=== PATIENT | female | born 1945 | race Caucasian/White ===

== ENCOUNTER 2020-01-15 18:30 | Inpatient (IN) | payer OTHER ==
[~2020-01-15] VITALS: Ht 170.2 cm; Wt 82.6 kg
[~2020-01-15 18:30] MED LIST: LISI2.5T47 PO; OMEP20CA74 PO
[2020-01-15] MEDS ORDERED: MORPHINE SULFATE 4 MG/ML SYR/VIAL IV ONE (18:45)
[2020-01-15] MEDS ORDERED: ONDANSETRON HCL 4 MG/2 ML VIAL IV ONE (18:45)
[2020-01-15 20:26] LABS: Calcium 8.2 mg/dL (8.5-10.1); Chloride 106 mmol/L (98-107); Sodium 136 mmol/L (136-145)
[2020-01-15 20:33] LABS: Alanine Aminotransferase 21 U/L (13-56); Albumin 3.2 g/dL (3.4-5.0); Alkaline Phosphatase 112 U/L (45-117); Anion Gap 6 (5-15); Aspartate Aminotransferase 15 U/L (15-37); Bilirubin, Total 0.3 mg/dL (0.2-1.0); Blood Urea Nitrogen 17 mg/dL (7-18); Carbon Dioxide 24 mmol/L (21-32); GFR African American 118 mL/min; GFR Non-African American 98 mL/min; Glucose 123 mg/dL (74-106); Total Protein 7.1 g/dL (6.4-8.2)
[2020-01-15 21:04] LABS: Urine Bacteria FEW /hpf (None Seen); Urine Blood 1+ /uL (Negative); Urine Specific Gravity 1.012 (1.001-1.035); Urine WBC 2 /hpf (0 - 5)
[2020-01-15 21:17] LABS: Basophils # (auto) 0.1 10 ^3/uL (0-0.2); Basophils % (auto) 0.6 % (0.0-2.0); Eosinophils # (auto) 0.1 10 ^3/uL (0-0.8); Hematocrit 43.8 % (36.0-46.0); Hemoglobin 14.2 g/dL (12.2-16.2); Lymphocytes # (auto) 1.1 10 ^3/uL (0.4-5.4); Lymphocytes % (auto) 13.7 % (10.0-50.0); Mean Corpuscular Hemoglobin 29.1 pg (28.0-32.0); Mean Corpuscular Hgb Conc. 32.5 g/dL (32.0-36.0); Mean Corpuscular Volume 89.5 fL (80.0-100.0); Monocytes # (auto) 0.5 10 ^3/uL (0-1.3); Monocytes % (auto) 6.6 % (0.0-12.0); Neutrophils # (auto) 6.4 10 ^3/uL (1.6-8.6); Neutrophils % (auto) 78.1 % (37.0-80.0); Nucleated Red Blood Cells % 0.1 %; Platelet Count (auto) 266 10^3/uL (140-450); Red Blood Cells 4.89 10^6/uL (4.0-5.20); Red Cell Distribution Width 14.2 % (11.8-14.3); White Blood Cell 8.2 10^3/uL (4.4-10.8)
[2020-01-15] MEDS ORDERED: SODIUM CHLORIDE 0.9% 1,000 ML IV SCH (23:38)
[2020-01-15] MEDS ORDERED: IPRATROPIUM BROM 0.5 MG/2.5ML INH SOL NEB PRN (23:45)
[2020-01-15] MEDS ORDERED: LORazepam 0.5 MG TAB PO PRN (23:45)
[2020-01-15] MEDS ORDERED: DOCUSATE SOD 100 MG CAP PO PRN (23:45)
[2020-01-15] MEDS ORDERED: HYDROcodone-ACET 5/325MG TAB PO PRN (23:45)
[2020-01-15] MEDS ORDERED: ALBUTEROL SULF 2.5 MG/0.5ML(0.5%) NEB SOLN NEB PRN (23:45)
[2020-01-15] MEDS ORDERED: ONDANSETRON HCL 4 MG/2 ML VIAL IV PRN (23:45)
[2020-01-15] MEDS ORDERED: ACETAMINOPHEN 325 MG TAB PO PRN (23:45)
[2020-01-15 23:52] VITALS: BP 138/123
[2020-01-16] VITALS (7 sets, daily range): BP systolic 145–163; BP diastolic 63–96
[2020-01-16] MEDS: cefTRIAXone 1GM/50ML D5W 50 ML IV SCH (00:13)
--- NOTE | 2020-01-16 00:30 | NUR ---
ADMISSION NOTE Pt admitted to room 248-A , m/s status, in stable cond. Pt oriented to room and procedures and POC discussed with pt. Pt verbalized understanding. Pt transferred to bed from stretcher and "lifting tarp" removed from under pt at this time. Pt cried out in pain during transfer. Will medicate pt according to orders. Pt with a soft tissue injury to her head per CT head results, and some old dry blood noted in pt's hair. Admission assessment completed now. Bed is low, wheels are locked, and call light is with in reach. Bed alarm is set for pt safety. Addendum: 01/16/20 at 0725 by CYNDIE FRANCIS RN Old dry blood found in the hair of right occipital area but no open wound found.
[2020-01-16] MEDS: MORPHINE SULF INJ 2 MG/ML SYRINGE 1ML IV PRN ×2 (01:10→09:35)
--- NOTE | 2020-01-16 05:58 | NUR ---
Respiratory note: ASSESSED PT FOR PRN TX , PT WAS AWAKE AND ALERT NO RESP DISTRESS NOTED. HR 58, RR 16, SPO2 100% ON 3L N/C. BS ARE CLEAR, NO INDICATION FOR TX AT THIS TIME. PT KNOWS TO HAVE RT PAGED IF TX IS NEEDED.
--- NOTE | 2020-01-16 07:30 | NUR ---
Opening Shift Note Assumed care of patient, awake and alert. No S/S of distress/SOB or pain. Instructed on POC and to call for assist PRN, will continue to monitor for changes Q1hr and PRN.
--- NOTE | 2020-01-16 08:00 | NUR ---
PT STARTED ON BILATERAL SCD'S.
[2020-01-16] MEDS ORDERED: methylPREDNISolone SOD SUCC 125 MG/2 ML VL IV SCH (10:00)
[2020-01-16] MEDS ORDERED: CELECOXIB 100 MG CAP PO ONE (13:30)
--- NOTE | 2020-01-16 15:00 | NUR ---
SPOKE TO PT'S DAUGHTER, SCOUT. STATUS UPDATE GIVEN. WILL CALL BACK TOMORROW.
[2020-01-16] MEDS: methylPREDNISolone SOD SUCC 40 MG/ML VL IV SCH ×2 (17:22→22:19)
--- NOTE | 2020-01-16 18:21 | NUR ---
RT NOTE: PT ASSESSED FOR PRN MED NEB TX, PT ON ROOM AIR SPO2 97% HR 72, RR 16. BS CLEAR. PT DENIES SOB. NO DISTRESS NOTED. PT NOTIFIED TO HAVE RT PAGED IF SOB OCCURS. CALL LIGHT WITHIN REACH.
--- NOTE | 2020-01-16 18:46 | NUR ---
CLOSING NOTES Patient awake and alert. RESTING IN BED. DENIES PAIN WHEN IMMOBILE. PT GOT UP WITH THE PHYSICAL THERAPIST AND WAS ABLE TO AMBULATE TO THE BATHROOM AND BACK. VERBALIZED FEELING GOOD UPON DOING IT.
[2020-01-16] MEDS: CELECOXIB 100 MG CAP PO SCH (22:19)
[2020-01-17 05:10] VITALS: BP 164/74
[2020-01-17] MEDS: methylPREDNISolone SOD SUCC 40 MG/ML VL IV SCH ×2 (05:16→09:54)
[2020-01-17] MEDS: cefTRIAXone 1GM/50ML D5W 50 ML IV SCH (05:16)
--- NOTE | 2020-01-17 07:30 | NUR ---
Opening Shift Note Assumed care of patient, awake and alert. No S/S of distress/SOB or pain on room air. Instructed on POC and to call for assist PRN, will continue to monitor for changes Q1hr and PRN. Bed in low and locked position, rails up x2, no-slip socks on.
--- NOTE | 2020-01-17 07:30 | NUR ---
Opening Shift Note Assumed care of patient, awake and alert. No S/S of distress/SOB or pain. Instructed on POC and to call for assist PRN, will continue to monitor for changes Q1hr and PRN. Bed in low and locked position, rails up x2, no-slip socks on.
[2020-01-17 09:00] VITALS: BP 166/83
[2020-01-17] MEDS: CELECOXIB 100 MG CAP PO SCH (09:49)
--- NOTE | 2020-01-17 10:00 | NUR ---
IV removal IV DC'd with clean sterile technique, catheter fully intact, IV site leaking. Pressure dressing applied to site. Patient tolerated well. Patient refusing new IV insertion at this time, educated patient on need for new IV but still refusing, will notify MD on rounds.
--- NOTE | 2020-01-17 10:04 | NUR ---
RT NOTE: WENT TO PTS ROOM TO ASSESS FOR PRN BREATHING TX. NO S/S OF SOB. HR 68, RR 16, SPO2 98% ON RA, NO INDICATION FOR TX AT THIS TIME. WILL CONTINUE TO MONITOR PT.
--- NOTE | 2020-01-17 11:49 | NUR ---
CALL FROM DR STAPLES UPDATED ON PATIENTS CONDITION, OK TO DISCHARGE TODAY
[2020-01-17 12:06] VITALS: BP 149/83
[2020-01-17 13:00] VITALS: BP 148/71
--- NOTE | 2020-01-17 14:30 | NUR ---
DISCHARGE Discharge instructions given as ordered. Encourage to follow up with PMD as instructed. All questions and concerns addressed. Patient verbalized understanding. Medication reconciliation form completed and copy given to patient. Patient taken to vehicle via wheelchair with all personal belongings, accompanied by staff. No distress noted at time of departure.
--- NOTE | 2020-01-18 09:59 | NUR ---
pharmacy technician infusion 01/16/2020 Per consult patient lives alone. May need some assistance. Patient discharged home prior to being assessed. No call or page on this patient. Addendum: 01/18/20 at 1401 by Gloria Blankenship Amended: Links added.
== END 2020-01-17 14:29 | disposition home or self-care (01) | DRG 206 ==
LOC: EDBD 18:30 → ER 18:39 → EAST 18:40
PROVIDERS: ADMIT Hospitalist; ATTEND Hospitalist
DX: S22.31XA Fracture of one rib, right side, initial encounter for closed fracture (principal); N39.0 Urinary tract infection, site not specified; J44.9 Chronic obstructive pulmonary disease, unspecified; M54.9 Dorsalgia, unspecified; K21.9 Gastro-esophageal reflux disease without esophagitis; I10 Essential (primary) hypertension; Z80.3 Family history of malignant neoplasm of breast; Z83.3 Family history of diabetes mellitus; Z90.710 Acquired absence of both cervix and uterus; Z87.891 Personal history of nicotine dependence; Z91.81 History of falling; Z90.49 Acquired absence of other specified parts of digestive tract; W01.0XXA Fall on same level from slipping, tripping and stumbling without subsequent striking against object, initial encounter; Y93.89 Activity, other specified; Y92.89 Other specified places as the place of occurrence of the external cause; Y99.8 Other external cause status; S09.90XA Unspecified injury of head, initial encounter
CPT/HCPCS: 36415; 70450; 71250; 72125; 73700; 80053; 81001; 84484; 85025; 93005; 94640; 96365; 96375; G0378; J0696; J2405

== ENCOUNTER 2023-05-04 16:05 | Emergency (ER) | payer OTHER ==
[~2023-05-04] VITALS: Ht 170.2 cm; Wt 70.0 kg
[2023-05-04] MEDS ORDERED: LOSARTAN POTASSIUM 50 MG TAB PO ONE (17:30)
[2023-05-04] MEDS ORDERED: OLME20TA53 PO (19:24)
[2023-05-04] MEDS ORDERED: DICL50TA4 PO (19:24)
[2023-05-04 21:45] VITALS: BP 157/67; PULSE 78; RESP 16; O2SAT 99
== END 2023-05-04 22:08 | disposition home or self-care (01) ==
LOC: ER 16:05 → EDBD 16:05 → EDSEX 16:05 → ER 22:08
DX: S40.012A Contusion of left shoulder, initial encounter (principal); I10 Essential (primary) hypertension; K21.9 Gastro-esophageal reflux disease without esophagitis; J44.9 Chronic obstructive pulmonary disease, unspecified; M19.90 Unspecified osteoarthritis, unspecified site; Z90.49 Acquired absence of other specified parts of digestive tract; Z90.710 Acquired absence of both cervix and uterus; Z98.890 Other specified postprocedural states; Z87.891 Personal history of nicotine dependence; Z79.899 Other long term (current) drug therapy; W18.39XA Other fall on same level, initial encounter; Y93.89 Activity, other specified; Y92.89 Other specified places as the place of occurrence of the external cause; Y99.8 Other external cause status
CPT/HCPCS: 73030

== ENCOUNTER 2025-03-24 12:05 | Inpatient (IN) | payer OTHER ==
[~2025-03-24] VITALS: Ht 167.6 cm; Wt 67.3 kg
[~2025-03-24 12:05] MED LIST changes: +DICL50TA4 PO; +OLME20TA53 PO
--- NOTE | 2025-03-24 12:14 | ED.PDOC ---
History of Present Illness HPI Comments 80-year-old female brought by paramedics because of generalized weakness chest discomfort the past three days. Today is the worse weakness she had. Denies nausea vomiting diarrhea. History of hypertension. Vitals signs stable. Blood sugar 134. Denies any other symptoms. Time Seen by MD: 12:08 Primary Care Provider: DANIELITO Reviewed Notes: Nurses Notes, Medications, Allergies Allergies: Coded Allergies: NO KNOWN ALLERGIES (Unverified , 03/22/16) Home Meds Active Scripts Olmesartan Medoxomil (Benicar) 20 Mg Tab, 1 TAB PO DAILY for 30 Days, #30 TAB 5 Refills Prov:KIKO GARCIA MD 05/04/23 Diclofenac Sodium (Diclofenac Sodium Ec) 50 Mg Tab, 1 TAB PO TID for 10 Days, #30 TAB 1 Refill Prov:KIKO GARCIA MD 05/04/23 Reported Medications Omeprazole (PRILOSEC) 20 Mg Cap, 1 CAP PO DAILY, #90 CAP 1 Refill 03/25/16 Lisinopril (Lisinopril) 2.5 Mg Tab, 2.5 MG PO DAILY for 30 Days, MG 03/25/16 Information Source: Patient, Emergency Med Personnel Mode of Arrival: EMS Severity: Moderate Timing: Days Duration: Since onset Past Medical History PAST MEDICAL HISTORY: Arthritis, COPD, GERD, HTN Surgical History: Appendectomy, Cholecystectomy, Hernia Repair, Hysterectomy NURSING PROFESSOR History: No Pertinent NURSING PROFESSOR History Family History Family History: Unobtainable Social History Smoker: Quit Greater Than 1 Year Alcohol: Occasionally Drugs: Denies Drug Use Lives In: Home Constitutional: denies: chills, diaphoresis, fatigue, fever, malaise, sweats, weakness, others EENTM: denies: blurred vision, double vision, ear bleeding, ear discharge, ear drainage, ear pain, ear ringing, eye pain, eye redness, hearing loss, mouth pain, mouth swelling, nasal discharge, nose bleeding, nose congestion, nose pain, photophobia, tearing, throat pain, throat swelling, voice changes, others Respiratory: denies: cough, hemoptysis, orthopnea, SOB at rest, shortness of breath, SOB with excertion, stridor, wheezing, others Cardiovascular: reports: chest pain; denies: dizzy spells, diaphoresis, Dyspnea on exertion, edema, irregular heart beat, left arm pain, lightheadedness, palpitations, PND, syncope, others Gastrointestinal: denies: abdomen distended, abdominal pain, blood streaked bowels, constipated, diarrhea, dysphagia, difficulty swallowing, hematemesis, melena, nausea, poor appetite, poor fluid intake, rectal bleeding, rectal pain, vomiting, others Genitourinary: denies: abnormal vagina bleeding, burning, dyspareunia, dysuria, flank pain, frequency, hematuria, incontinence, pain, , vagina discharge, urgency, others Neurological: reports: weakness; denies: dizziness, fainting, headache, left sided numbness, left sided weakness, numbness, paresthesia, pre-existing de ficit, right sided numbness, right sided weakness, seizure, speech problems, tingling, tremors, others Musculoskeletal: denies: back pain, gout, joint pain, joint swelling, muscle pain, muscle stiffness, neck pain, others Integumetry: denies: bruises, change in color, change in hair/nails, dryness, laceration, lesions, lumps, rash, wounds, others Allergic/Immunocompromised: denies: Difficulty Healing, Frequent Infections, Hives, Itching, others Hematologic/Lymphatic: denies: anemia, blood clots, easy bleeding, easy bruising, swollen glands, others Endocrine: denies: excessive hunger, excessive sweating, excessive thirst, excessive urination, flushing, intolerance to cold, intolerance to heat, unexplained weight gain, unexplained weight loss, others Psychiatric: denies: anxiety, bipolar disorder, depression, hopeless, panic disorder, schizophrenia, sleepless, suicidal, others Physical Exam General Appearance: Moderate Distress HEENT: Normal ENT Inspection, Pharynx Normal, TMs Normal Neck: Full Range of Motion, Non-Tender, Normal, Normal Inspection Respiratory: Chest Non-Tender, Lungs Clear, No Accessory Muscle Use, No Respiratory Distress, Normal Breath Sounds Cardiovascular: No Edema, No JVD, No Murmur, No Gallop, Normal Peripheral Pulses, Regular Rate/Rhythm Breast Exam: Deferred Gastrointestinal: No Organomegaly, Non Tender, No Pulsatile Mass, Normal Bowel Sounds, Soft Genitalia: Deferred Pelvic: Deferred Rectal: Deferred Extremities: No calf tenderness, Normal capillary refill, Normal inspection, Normal range of motion, Non-tender, No pedal edema Musculoskeletal : Apperance: Normal Neurologic: Alert, server programmer II-XII nml as Tested, No Motor Deficits, Normal Affect, Normal Mood, No Sensory Deficits Cerebellar Function: NOT DONE Reflexes: NOT DONE Skin: Dry, Normal Color, Warm Peripheral Pulses: 3+ Radial (R), 3+ Radial (L) Lymphatic: No Adenopathy Was a procedure done? Was a procedure done?: No EKG EKG : Pulse Rate (adult): 73 Cardiac Rhythm: NSR Differential Dx Considerations may include: Anemia Electrolyte imbalance X-Ray, Labs, Meds, VS Vital Signs Date Time Temp Pulse Resp B/P (MAP) Pulse Ox O2 Delivery O2 Flow Rate FiO2 03/24/25 15:15 84 20 126/80 (95) 100 03/24/25 14:40 187/98 03/24/25 14:15 62 15 164/97 (119) 98 03/24/25 13:15 62 15 98 Room Air* 0 21 03/24/25 13:15 62 21 164/97 (119) 98 03/24/25 12:30 98.2 83 20 169/93 (118) 99 98.2 03/24/25 12:14 73 03/24/25 12:05 73 Lab Test 03/24/25 15:02 03/24/25 12:54 Range/Units Sodium Level 136 136-145 mmol/L Potassium Level 7.5 *H 3.5-5.1 mmol/L Chloride Level 106 98-107 mmol/L Carbon Dioxide Level Pending Anion Gap Pending Blood Urea Nitrogen Pending Creatinine Pending Glomerular Filtration Rate Calc Pending BUN/Creatinine Ratio Pending Serum Glucose Pending Calcium Level Pending White Blood Count 4.9 4.4-10.8 10^3/uL Red Blood Count 5.07 4.0-5.20 10^6/uL Hemoglobin 17.3 H 12.2-16.2 g/dL Hematocrit 49.7 H 36.0-46.0 % Mean Corpuscular Volume 98.1 80.0-100.0 fL Mean Corpuscular Hemoglobin 34.2 H 28.0-32.0 pg Mean Corpuscular Hemoglobin Concent 34.8 32.0-36.0 g/dL Red Cell Distribution Width 14.6 H 11.8-14.3 % Platelet Count 329 140-450 10^3/uL Mean Platelet Volume 8.5 6.9-10.8 fL Neutrophils (%) (Auto) 74.1 37.0-80.0 % Lymphocytes (%) (Auto) 17.9 10.0-50.0 % Monocytes (%) (Auto) 5.8 0.0-12.0 % Eosinophils (%) (Auto) 1.1 0.0-7.0 % Basophils (%) (Auto) 1.1 0.0-2.0 % Neutrophils # (Auto) 3.6 1.6-8.6 10 ^3/uL Lymphocytes # (Auto) 0.9 0.4-5.4 10 ^3/uL Monocytes # (Auto) 0.3 0-1.3 10 ^3/uL Eosinophils # (Auto) 0.1 0-0.8 10 ^3/uL Basophils # (Auto) 0.1 0-0.2 10 ^3/uL Nucleated Red Blood Cells 0.0 % Troponin I High Sensitivity 5 </=34 ng/L Current Medications Medications (Trade) Dose Ordered Sig/Alejandra Route Start Time Stop Time Status Last Admin Sodium Chloride 1,000 ml @ 1,000 mls/hr Q1H ONCE IV 03/24/25 12:15 03/24/25 13:14 DC 03/24/25 13:15 Clonidine HCl (Catapres Tablet) 0.2 mg ONCE ONCE PO 03/24/25 14:30 03/24/25 14:32 DC 03/24/25 14:40 Patient alert. Complaining of generalized weakness. Vitals stable. Answering questions. She does have chest discomfort. EKG reviewed does not show any acute changes. Possibly the more like she does not have anyone to take care of her. No sign of any injuries. Cardiac marker within normal limits. Dehydration. Establish intravenous access. Was given fluids. Blood pressure elevated pain Was given clonidine. Was given labetalol. Potassium elevated. Hyperkalemia treatment. Explained to the patient. Continue to monitor. Time of 1ST Reevaluation: 12:11 Reevaluation 1ST: Unchanged Patient Education/Counseling: Diagnosis, Treatment, Prognosis Family Education/Counseling: No Family Present SEPSIS Sepsis Screen Physician Orders Electrocardigram (03/24/25 12:11) Urinalysis (03/24/25 12:15) Basic Metabolic Panel (03/24/25 12:15) Vital Signs Date Time Temp Pulse Resp B/P (MAP) Pulse Ox O2 Delivery O2 Flow Rate FiO2 03/24/25 15:15 84 20 126/80 (95) 100 03/24/25 14:40 187/98 03/24/25 14:15 62 15 164/97 (119) 98 03/24/25 13:15 62 15 98 Room Air* 0 21 03/24/25 13:15 62 21 164/97 (119) 98 03/24/25 12:30 98.2 83 20 169/93 (118) 99 98.2 03/24/25 12:14 73 03/24/25 12:05 73 Laboratory Tests Test 03/24/25 12:54 White Blood Count 4.9 10^3/uL (4.4-10.8) Medications Medications Dose Ordered Sig/Alejandra Route Start Time Stop Time Status Last Admin Dose Admin Clonidine HCl 0.2 mg ONCE ONCE PO 03/24/25 14:30 03/24/25 14:32 DC 03/24/25 14:40 Sodium Chloride 1,000 ml @ 1,000 mls/hr Q1H ONCE IV 03/24/25 12:15 03/24/25 13:14 DC 03/24/25 13:15 Departure 1 Departure Time of Disposition: 12:13 Impression: Primary Impression: Hyperkalemia Additional Impressions: Hypertensive emergency Generalized weakness Dehydration Disposition: 09 ADMITTED INPATIENT Admit to: Med Surg Condition: Guarded Critical Care Note Critical Care Time?: No Stability Stability form required: No Heart Score Heart Score: Heart Score Response (Comments) Value History Slightly Suspicious 0 EKG Normal 0 Age >65 2 Risk Factors >3 or Hx ASHD 2 Troponin Normal limit 0 Total 4 NEHEMIAS AVALOS MD Mar 24, 2025 12:14
[2025-03-24 13:15] VITALS: PULSE 62; RESP 15; O2SAT 98
[2025-03-24] MEDS: SODIUM CHLORIDE 0.9% 1,000 ML IV ONE ×2 (13:15→18:41)
[2025-03-24 13:59] LABS: Hematocrit 49.7 % (36.0-46.0); Hemoglobin 17.3 g/dL (12.2-16.2); Mean Corpuscular Hemoglobin 34.2 pg (28.0-32.0); Mean Corpuscular Volume 98.1 fL (80.0-100.0); Nucleated Red Blood Cells % 0.0 %
[2025-03-24 15:41] LABS: Chloride 106 mmol/L (98-107); Sodium 136 mmol/L (136-145)
[2025-03-24 15:43] LABS: Potassium 7.5 mmol/L (3.5-5.1)
[2025-03-24 15:51] LABS: Anion Gap 4 (5-15); BUN/Creatinine Ratio 15.2 (10.0-20.0); Blood Urea Nitrogen 14 mg/dL (9-23); Calcium 9.1 mg/dL (8.7-10.4); Carbon Dioxide 26 mmol/L (20-31); Glucose 97 mg/dL (74-106)
[2025-03-24] MEDS: CALCIUM GLUC 1,000mg/50ml-NS 50 ML IV ONE (16:00)
[2025-03-24] MEDS: SODIUM BICARB 8.4% 50Meq/50ml SYR INJ IV ONE (16:01)
[2025-03-24] MEDS: FUROSEMIDE 20 MG/2 ML VIAL IV ONE (16:01)
[2025-03-24] MEDS: SODIUM ZIRCONIUM CYCL 10 GM PAK PO ONE (16:01)
[2025-03-24] MEDS: ALBUTEROL SULF 2.5 MG/0.5ML(0.5%) NEB SOLN NEB ONE (16:07)
[2025-03-24] MEDS: LABETALOL HCL 20 MG/4 ML VL IV ONE (17:05)
[2025-03-24] MEDS ORDERED: SODIUM CHLORIDE 0.9% 1,000 ML IV ONE (17:45)
[2025-03-24] MEDS ORDERED: DOCUSATE SOD 100 MG CAP PO PRN (17:45)
[2025-03-24] MEDS ORDERED: SODIUM CHLORIDE 0.9% 1,000 ML IV SCH (17:45)
[2025-03-24] MEDS ORDERED: MORPHINE SULFATE INJ 2 MG/ml SYRG IV PRN (17:45)
[2025-03-24] MEDS ORDERED: ONDANSETRON HCL 4 MG/2 ML VIAL IV PRN (17:45)
[2025-03-24] MEDS ORDERED: ACETAMINOPHEN 325 MG TAB PO PRN (17:45)
[2025-03-24] MEDS ORDERED: NITROGLYCERIN 0.4 MG SL TAB SL PRN (17:45)
[2025-03-24] MEDS ORDERED: TEMAZEPAM 15 MG CAP PO PRN (17:45)
[2025-03-24] MEDS ORDERED: hydrALAZINE HCL 20 MG/ML VL IV PRN (20:00)
[2025-03-24] MEDS: SODIUM CHLORIDE 0.9% 1,000 ML IV SCH (20:38)
[2025-03-24 21:16] VITALS: BP 157/84; PULSE 47; RESP 12; TEMP 97.2; O2SAT 98
[2025-03-24 22:08] VITALS: PULSE 57; RESP 18; O2SAT 98
[2025-03-25 01:00] VITALS: BP 134/68; PULSE 54; RESP 17; TEMP 97.7; O2SAT 99
--- NOTE | 2025-03-25 01:39 | DVHHP2 ---
ALFONZO PELLETIER BATTERY TESTER 03/25/25 0138: History of Present Illness Reason for Visit: Generalized weakness History of Present Illness 80-year-old female with past medical history of hypertension, hyperlipidemia presents with complaints of chest discomfort and generalized weakness x3 days. During the emergency department evaluation K 7.5/5.7 after treatment. Otherwise BMP unremarkable. troponins negative 5. CBC W4.9, HGB 17.3, HCT 49.7, PLT 329. At this time patient denies fevers, chills, shortness of breath, dizziness, chest pain/pressure, palpitations, nausea, vomiting, leg swelling, flank pain, abdominal pain. Cardiovascular: HTN, hyperipidemia Smoke: No ALCOHOL: none Drugs: None Lives: with Family Review of Systems Constitutional: Yes: Weakness; No: Fever, Chills, Sweats, Malaise, Other Eyes: No: Pain, Vision change, Conjunctivae inflammation, Eyelid inflammation, Other, Redness ENT: No: Ear pain, Ear discharge, Nose pain, Nose discharge, Nose congestion, Mouth pain, Mouth swelling, Throat pain, Throat swelling, Other Respiratory: No: Cough, Dry, Shortness of breath, SOB with excertion, Wheezing, Hemoptysis, Pleuritic Pain, Sputum, Wheezing, Other Cardiovascular: No: Chest Pain, Palpitations, Orthopnea, Paroxysmal Noc. Dyspnea, Edema, Lt Headedness, Other Gastrointestinal: No: Nausea, Vomiting, Abdominal Pain, Diarrhea, Constipation, Melena, Hematochezia, Other Genitourinary: No Dysuria, No Frequency, No Incontinence, No Hematuria, No Retention, No Other Musculoskeletal: No: other, neck pain, shoulder pain, arm pain, back pain, hand pain, leg pain, foot pain Skin: No: Rash, Lesions, Jaundice, Bruising, Other Neurological: Weakness; No: Numbness, Incoordination, Change in speech, Confusion, Seizures, Other Allergies: Coded Allergies: NO KNOWN ALLERGIES (Unverified , 03/22/16) Medications Current Medications Medications Dose Ordered Sig/Alejandra Route Start Time Stop Time Status Last Admin Dose Admin Temazepam 15 mg QHSP PRN PO 03/24/25 17:45 Ondansetron HCl 4 mg Q4HP PRN IV 03/24/25 17:45 Docusate Sodium 100 mg BIDPRN PRN PO 03/24/25 17:45 Zinc Sulfate 220 mg DAILY PO 03/25/25 10:00 Multivitamins 1 tab DAILY PO 03/25/25 10:00 Enoxaparin Sodium 30 mg DAILY SC 03/25/25 10:00 Acetaminophen 650 mg Q6HP PRN PO 03/24/25 17:45 Nitroglycerin 0.4 mg Q5MINP PRN SL 03/24/25 17:45 Morphine Sulfate 2 mg Q30M PRN IV 03/24/25 17:45 Sodium Chloride 1,000 ml @ 100 mls/hr Q10H IV 03/24/25 19:45 03/24/25 20:38 100 MLS/HR Hydralazine HCl 10 mg Q6HP PRN IV 03/24/25 20:00 Exam Vital Signs Vital Signs Date Time Temp Pulse Resp B/P (MAP) Pulse Ox O2 Delivery O2 Flow Rate FiO2 03/24/25 22:08 57 18 98 Room Air* 0 21 03/24/25 21:16 97.2 157/84 (108) 97.2 General Appearance: Alert, Oriented X3, Cooperative, No acute distress HEENT: Atraumatic, PERRLA, EOMI Respiratory: Clear to auscultation, Normal air movement Cardiovascular: Regular rate, Normal S1, Normal S2 Abdominal: Normal bowel sounds, Soft, No tenderness Extremities: No edema Skin: No rashes, No breakdown Neuro: Normal speech, Strength at 5/5 X4 ext Psych/Mental Status: Mental status NL, Mood NL Labs/Xrays Labs Test 03/25/25 00:35 03/24/25 17:44 03/24/25 15:55 03/24/25 15:02 Range/Units Potassium Level 4.0 3.5-5.1 mmol/L Creatine Kinase 57 34-145 U/L POC Glucose 101 70-106 mg/dl Sodium Level 136 136-145 mmol/L Chloride Level 106 98-107 mmol/L Carbon Dioxide Level 26 20-31 mmol/L Anion Gap 4 L 5-15 Blood Urea Nitrogen 14 9-23 mg/dL Creatinine 0.92 0.550-1.02 mg/dL Glomerular Filtration Rate Calc 63 >90 mL/min BUN/Creatinine Ratio 15.2 10.0-20.0 Serum Glucose 97 74-106 mg/dL Calcium Level 9.1 8.7-10.4 mg/dL Test 03/24/25 12:54 Range/Units White Blood Count 4.9 4.4-10.8 10^3/uL Red Blood Count 5.07 4.0-5.20 10^6/uL Hemoglobin 17.3 H 12.2-16.2 g/dL Hematocrit 49.7 H 36.0-46.0 % Mean Corpuscular Volume 98.1 80.0-100.0 fL Mean Corpuscular Hemoglobin 34.2 H 28.0-32.0 pg Mean Corpuscular Hemoglobin Concent 34.8 32.0-36.0 g/dL Red Cell Distribution Width 14.6 H 11.8-14.3 % Platelet Count 329 140-450 10^3/uL Mean Platelet Volume 8.5 6.9-10.8 fL Neutrophils (%) (Auto) 74.1 37.0-80.0 % Lymphocytes (%) (Auto) 17.9 10.0-50.0 % Monocytes (%) (Auto) 5.8 0.0-12.0 % Eosinophils (%) (Auto) 1.1 0.0-7.0 % Basophils (%) (Auto) 1.1 0.0-2.0 % Neutrophils # (Auto) 3.6 1.6-8.6 10 ^3/uL Lymphocytes # (Auto) 0.9 0.4-5.4 10 ^3/uL Monocytes # (Auto) 0.3 0-1.3 10 ^3/uL Eosinophils # (Auto) 0.1 0-0.8 10 ^3/uL Basophils # (Auto) 0.1 0-0.2 10 ^3/uL Nucleated Red Blood Cells 0.0 % Troponin I High Sensitivity 5 </=34 ng/L SEPSIS Sepsis Screen Date sepsis recognized/suspect: Mar 24, 2025 Time Sepsis recognized/suspect: 1211 Recent Procedure: No On Antibiotic Therapy: No Respiratory Rate >20: No Heart Rate >90: No Temp<36 C (96.8 F) or >38.3 C: No SBP <90 or MAP <65 mmHG: No New Acute Mental Status Change: No Is the patient on CPAP, BIPAP,: No Physician Orders Allergies (03/24/25 17:42) Code Status (03/24/25 17:42) Renal Standard(2gna,3gk,Lopho) (03/24/25 Dinner) Temazepam (Restoril) (03/24/25 17:45) Ondansetron Hcl (Zofran) (03/24/25 17:45) Docusate Sodium Capsule (Colace Capsule) (03/24/25 17:45) Zinc Sulfate (03/25/25 10:00) Multiple Vitamin Tablet (Mvi Tab) (03/25/25 10:00) Fall Risk Precautions In Place QSHIFT (03/24/25 17:42) Complete Blood Count (03/25/25 04:00) Comprehensive Metabolic Panel (03/25/25 04:00) Pt Request For Service (03/24/25 17:42) Condition: Stable (03/24/25 17:42) Enoxaparin Sodium (Lovenox) (03/25/25 10:00) Acetaminophen Tablet (Tylenol Tablet) (03/24/25 17:45) Nitroglycerin Sublingual (Ntrostat Subli (03/24/25 17:45) Morphine Sulfate Injection (03/24/25 17:45) Oxygen By Nasal Cannula (03/24/25 17:42) Stat Ekg For Chest Pain (03/24/25 17:42) Notify Md Of Changes From Base (03/24/25 17:42) Wharf Tally Clerk For 24 Hours (03/24/25 17:42) Emergency Dysrhythmia Protocol (03/24/25 17:42) Rhythm Strips Once Every Shift (03/24/25 17:42) Wharf Tally Clerk (03/24/25 17:59) Admit (03/24/25 18:05) Oxygen By Nasal Cannula (03/24/25 18:05) Sodium Chloride 0.9% (03/24/25 19:45) Complete Blood Count (03/26/25 05:00) Complete Blood Count (03/27/25 05:00) Basic Metabolic Panel (03/26/25 05:00) Basic Metabolic Panel (03/27/25 05:00) Hydralazine Injection (Apresoline Inject (03/24/25 20:00) Hepatitis B Surface Antigen (03/24/25 23:08) Hepatitis C Antibody (03/24/25 23:08) Education - Smoking Cessation (03/24/25 23:08) * Smoking Cessation Consult (03/24/25 23:08) Vital Signs Date Time Temp Pulse Resp B/P (MAP) Pulse Ox O2 Delivery O2 Flow Rate FiO2 03/24/25 22:08 57 18 98 Room Air* 0 21 03/24/25 21:16 97.2 47 12 157/84 (108) 98 97.2 03/24/25 20:15 62 16 150/83 (105) 97 03/24/25 20:00 61 03/24/25 19:15 58 21 129/66 (87) 99 03/24/25 18:15 97.7 62 21 132/73 (92) 97 97.7 Medications Medications Dose Ordered Sig/Alejandra Route Start Time Stop Time Status Last Admin Dose Admin Albuterol 20 mg ONCE ONCE NEB 03/24/25 16:00 03/24/25 16:01 DC 03/24/25 16:07 20 MG Calcium Gluconate/ Sodium Chloride 50 ml @ 120 mls/hr ONCE ONCE IV 03/24/25 16:00 03/24/25 16:24 DC 03/24/25 16:00 120 MLS/HR Clonidine HCl 0.2 mg ONCE ONCE PO 03/24/25 14:30 03/24/25 14:32 DC 03/24/25 14:40 0.2 MG Furosemide 20 mg ONCE ONCE IV 03/24/25 16:00 03/24/25 16:01 DC 03/24/25 16:01 20 MG Labetalol HCl 10 mg ONCE ONCE IV 03/24/25 15:30 03/24/25 15:31 DC 03/24/25 17:05 10 MG Sodium Bicarbonate 50 ml ONCE ONCE IV 03/24/25 16:00 03/24/25 16:01 DC 03/24/25 16:01 50 ML Sodium Chloride 1,000 ml @ 100 mls/hr Q10H IV 03/24/25 19:45 03/24/25 20:38 100 MLS/HR Sodium Chloride 1,000 ml @ 1,000 mls/hr Q1H ONCE IV 03/24/25 17:45 03/24/25 18:44 DC 03/24/25 18:41 1,000 MLS/HR Zirconium Oxide 10 gm ONCE ONCE PO 03/24/25 16:00 03/24/25 16:01 DC 03/24/25 16:01 10 GM Assessment/Plan Assessment/Plan Hyperkalemia Hypertension. Generalized weakness. Dehydration Plan admit customer field representative BMP. Correct electrolytes as needed. As needed antihypertensive for optimal BP management. IVF Physical therapy evaluation Cardiac/low potassium diet GI ppx Protonix / DVT ppx lovenox Plan discussed with: Patient My Orders Orders - ALFONZO PELLETIER NP Procedure Category Date Status Time Sodium Chloride 0.9% PHA 03/24/25 In Process 19:45 Complete Blood Count LAB 03/26/25 Verified 05:00 Complete Blood Count LAB 03/27/25 Verified 05:00 Basic Metabolic Panel LAB 03/26/25 Verified 05:00 Basic Metabolic Panel LAB 03/27/25 Verified 05:00 Hydralazine Injection PHA 03/24/25 In Process (Apresoline Inject 20:00 Date of Service: Mar 25, 2025 Billing Provider: DOTTY GRIGSBY MD Common Visit Codes: NOT BILLABLE DOTTY GRIGSBY MD 03/25/25 1121: Review of Systems Allergies: Coded Allergies: NO KNOWN ALLERGIES (Unverified , 03/22/16) Additional Comments Additional Comments Additional Comments Patient's chart is reviewed and discussed with the nurse practitioner. Patient is seen evaluated and admitted by nurse practitioner central stores attendant. I agree with his evaluation, documentation, assessment and care plan as outlined. I have evaluated the patient earlier today and discussed the plan of care with the patient's daughter as well as patient at bedside. ALFONZO PELLETIER NP Mar 25, 2025 01:38 DOTTY GRIGSBY MD Mar 25, 2025 11:21
[2025-03-25 05:00] VITALS: BP 139/79; PULSE 57; RESP 16; TEMP 97.6; O2SAT 98
[2025-03-25 07:47] LABS: Alanine Aminotransferase 13 U/L (7-40); Albumin 3.9 g/dL (3.2-4.8); Alkaline Phosphatase 69 U/L (46-116); Anion Gap 9 (5-15); BUN/Creatinine Ratio 12.9 (10.0-20.0); Blood Urea Nitrogen 12 mg/dL (9-23); Calcium 9.4 mg/dL (8.7-10.4); Carbon Dioxide 28 mmol/L (20-31); Chloride 105 mmol/L (98-107); Potassium 3.9 mmol/L (3.5-5.1); Sodium 142 mmol/L (136-145); Total Protein 6.0 g/dL (5.7-8.2)
[2025-03-25 07:48] LABS: Bilirubin, Total 0.5 mg/dL (0.2-1.0)
[2025-03-25 07:50] LABS: Glucose 110 mg/dL (74-106)
[2025-03-25 08:00] VITALS: PULSE 57; PULSE 61; RESP 16; O2SAT 96
[2025-03-25 08:12] LABS: Hematocrit 40.3 % (36.0-46.0); Hemoglobin 13.7 g/dL (12.2-16.2); Mean Corpuscular Hemoglobin 31.0 pg (28.0-32.0); Mean Corpuscular Volume 91.3 fL (80.0-100.0); Nucleated Red Blood Cells % 0.3 %
--- NOTE | 2025-03-25 08:20 | DVH ---
INDICATION: abnormal electrolyte level TECHNIQUE: Multiple real-time sonographic images of the kidneys and bladder were obtained. COMPARISON: None FINDINGS: The right kidney measures 10 cm in length, which is normal in size. There is increased echo genicity of the right kidney. No hydronephrosis. The left kidney measures 9 cm in length, which is normal in size. There is increased echogenicity of the left kidney. No hydronephrosis. No large intraluminal masses are seen in the bladder. IMPRESSION: Bilateral medical renal disease
[2025-03-25 08:44] VITALS: BP 139/80; PULSE 61; RESP 16; TEMP 98; O2SAT 96
[2025-03-25] MEDS: ENOXAPARIN SOD 30 MG/0.3 ML SYRINGE SC SCH (10:00)
[2025-03-25] MEDS: MULTIPLE VITAMIN TAB PO SCH (10:15)
[2025-03-25] MEDS: ZINC SULFATE 220mg CAP or TAB PO SCH (10:15)
[2025-03-25] MEDS ORDERED: AMLO1TAB23 PO (11:22)
--- NOTE | 2025-03-25 11:25 | DVHDS2 ---
Discharge Summary Date of Admission Mar 24, 2025 at 17:42 Date of Discharge: Mar 25, 2025 Labs/Diagnostic Data: Laboratory Results Test 03/25/25 06:54 03/24/25 17:44 03/24/25 15:55 03/24/25 15:02 White Blood Count 4.9 10^3/uL (4.4-10.8) Red Blood Count 4.41 10^6/uL (4.0-5.20) Hemoglobin 13.7 g/dL (12.2-16.2) Hematocrit 40.3 % (36.0-46.0) Mean Corpuscular Volume 91.3 fL (80.0-100.0) Mean Corpuscular Hemoglobin 31.0 pg (28.0-32.0) Mean Corpuscular Hemoglobin Concent 33.9 g/dL (32.0-36.0) Red Cell Distribution Width 14.3 % (11.8-14.3) Platelet Count 252 10^3/uL (140-450) Mean Platelet Volume 7.7 fL (6.9-10.8) Neutrophils (%) (Auto) 65.9 % (37.0-80.0) Lymphocytes (%) (Auto) 21.2 % (10.0-50.0) Monocytes (%) (Auto) 9.1 % (0.0-12.0) Eosinophils (%) (Auto) 2.5 % (0.0-7.0) Basophils (%) (Auto) 1.3 % (0.0-2.0) Neutrophils # (Auto) 3.3 10 ^3/uL (1.6-8.6) Lymphocytes # (Auto) 1.0 10 ^3/uL (0.4-5.4) Monocytes # (Auto) 0.4 10 ^3/uL (0-1.3) Eosinophils # (Auto) 0.1 10 ^3/uL (0-0.8) Basophils # (Auto) 0.1 10 ^3/uL (0-0.2) Nucleated Red Blood Cells 0.3 % Sodium Level 142 mmol/L (136-145) Potassium Level 3.9 mmol/L (3.5-5.1) Chloride Level 105 mmol/L (98-107) Carbon Dioxide Level 28 mmol/L (20-31) Anion Gap 9 (5-15) Blood Urea Nitrogen 12 mg/dL (9-23) Creatinine 0.93 mg/dL (0.550-1.02) Glomerular Filtration Rate Calc 62 mL/min (>90) BUN/Creatinine Ratio 12.9 (10.0-20.0) Serum Glucose 110 mg/dL (74-106) Calcium Level 9.4 mg/dL (8.7-10.4) Total Bilirubin 0.5 mg/dL (0.2-1.0) Aspartate Amino Transferase (AST) 15 U/L (13-40) Alanine Aminotransferase (ALT) 13 U/L (7-40) Alkaline Phosphatase 69 U/L (46-116) Total Protein 6.0 g/dL (5.7-8.2) Albumin 3.9 g/dL (3.2-4.8) Creatine Kinase 57 U/L (34-145) POC Glucose 101 mg/dl (70-106) Test 03/24/25 12:54 Troponin I High Sensitivity 5 ng/L (</=34) Other Laboratory Tests 03/25/25 06:54 Brief Hx & Hospital Course: 80-year-old female with past medical history of hypertension, hyperlipidemia presents with complaints of chest discomfort and generalized weakness x3 days. During the emergency department evaluation K 7.5/5.7 after treatment. Otherwise BMP unremarkable. troponins negative 5. CBC W4.9, HGB 17.3, HCT 49.7, PLT 329. At this time patient denies fevers, chills, shortness of breath, dizziness, chest pain/pressure, palpitations, nausea, vomiting, leg swelling, flank pain, abdominal pain. She is admitted for her hyperkalemia and generalized weakness. On further evaluation patient apparently taking lisinopril and Benicar. These were discontinued in the hospital. Her potassium levels have corrected. For her high blood pressure she is started on amlodipine. I have talked with the patient and her daughter at bedside today to stop her home Benicar and lisinopril. To continue amlodipine as she is prescribed blood pressure. I have advised him to follow up with the [facility] as well as primary care physician to repeat her potassium levels. Meantime while in the hospital. Underwent physical therapy evaluation and able to ambulate on her own without any significant weakness. Given her blood pressure is controlled and potassium is corrected patient feeling better back to normal baseline status it is felt she can be safely discharged home. Patient and daughter at bedside verbalized understanding over hospital diagnosis, treatment she received, discharge medications, discharge instructions and agree with the discharge follow-up plan of care as outlined. Condition at Discharge: Stable Final Diagnosis/Problems List Malignant hypertension, hyperkalemia possibly secondary to YURY/ARB Discharge Disposition: Home Discharge Instruct/Medications Diet: Consistent carbohydrate, Cardiac 2g Na,low cholest Activity: No Restrictions, As Tolerated Follow Up/Referral: With the primary care physician after two weeks to repeat potassium levels and check blood pressure and manage blood pressure medications. Follow up at [facility] urgent Care [phone] on Saturday to repeat blood tests for potassium and check blood pressure. Medications: Stop at home blood pressure medications you were taking. Start taking amlodipine as prescribed for blood pressure. Scheduled Amlodipine Besylate (Amlodipine Besylate), 1 TAB PO DAILY Omeprazole (Prilosec), 1 CAP PO DAILY, (Reported) Discontinued Medications Diclofenac Sodium (Diclofenac Sodium Ec), 1 TAB PO TID Lisinopril (Lisinopril), 2.5 MG PO DAILY, (Reported) Olmesartan Medoxomil (Benicar), 1 TAB PO DAILY Discharge Statement: "Patient was advised to return to the ER or call 911 if any headaches, dizziness, shortness of breath, chest pain, abdominal pain, bleeding, fevers, or worsening of medical condition. Patient was counseled about treatment plan, medications, possible side effects, patientverbalized understanding. All questions were answered to the best of my ability. This discharge took greater then 30 minutes in planning, reviewing documentation, counseling the patient, and discussing with other team members." ASSESSMENT ASSESSMENT Assessment Malignant hypertension, hyperkalemia possibly secondary to YURY/ARB DOTTY GRIGSBY MD Mar 25, 2025 11:25
[2025-03-25 12:03] VITALS: BP 139/80; PULSE 96; RESP 16; TEMP 98; O2SAT 96
--- NOTE | 2025-03-25 12:46 | ECG ---
[facility] Test Date: 2025-03-24 Test Time: 12:03:53 Pat Name: KEVON DONIS Department: [facility] F Client Director: MARCEL : 1945 Requested By: NEHEMIAS AVALOS Order Number: [id number] Reading MD: Mariano Beal Measurements Intervals [place] Rate: 73 P: 58 [place]: 190 QRS: 2 QRSD: 76 T: 33 QT: 388 QTc: 428 Interpretive Statements Sinus rhythm Low voltage, precordial leads Anteroseptal infarct, old Minimal ST elevation, inferior leads Electronically Signed On 03-31-2025 14:00:21 PDT by Mariano Beal Please click the below link to view image of tracing.
[2025-03-26 10:42] LABS: Hepatitis B Surface Antigen Negative (Negative); Hepatitis C Antibody Negative (Negative)
== END 2025-03-25 13:13 | disposition home or self-care (01) | DRG 641 ==
LOC: EDBD 12:05 → ER 12:05 → OVERFLOW 17:42 → TELE-WESTW 21:16 → WEST WING 03-25 03:24 → TELE-WESTW 03-25 07:51
PROVIDERS: ADMIT Hospitalist; ATTEND Hospitalist
DX: E87.5 Hyperkalemia (principal); I16.0 Hypertensive urgency; J44.9 Chronic obstructive pulmonary disease, unspecified; E86.0 Dehydration; I10 Essential (primary) hypertension; E78.5 Hyperlipidemia, unspecified; K21.9 Gastro-esophageal reflux disease without esophagitis; Z90.710 Acquired absence of both cervix and uterus; Z87.891 Personal history of nicotine dependence; Z90.49 Acquired absence of other specified parts of digestive tract; T46.4X5A Adverse effect of angiotensin-converting-enzyme inhibitors, initial encounter; T46.5X5A Adverse effect of other antihypertensive drugs, initial encounter
CPT/HCPCS: 36415; 76775; 80048; 80053; 82550; 82962; 84132; 84484; 85025; 86803; 87340; 93005; 94640; 96365; 97163; G0378

== ENCOUNTER 2025-07-02 07:12 | Emergency (ER) | payer OTHER ==
[~2025-07-02] VITALS: Ht 167.6 cm; Wt 81.8 kg
[~2025-07-02 07:12] MED LIST changes: +AMLO1TAB23 PO; -DICL50TA4 PO; -LISI2.5T47 PO; -OLME20TA53 PO
[2025-07-02 07:43] VITALS: PULSE 79; RESP 16; O2SAT 98
[2025-07-02] MEDS: SODIUM CHLORIDE 0.9% 1,000 ML IV ONE (07:47)
[2025-07-02 07:52] LABS: Hematocrit 34.3 % (36.0-46.0); Hemoglobin 11.7 g/dL (12.2-16.2); Mean Corpuscular Hemoglobin 32.7 pg (28.0-32.0); Mean Corpuscular Volume 95.9 fL (80.0-100.0); Nucleated Red Blood Cells % 0.0 %
[2025-07-02 08:08] LABS: Alanine Aminotransferase 16 U/L (7-40); Albumin 4.2 g/dL (3.2-4.8); Alkaline Phosphatase 92 U/L (46-116); Anion Gap 11 (5-15); BUN/Creatinine Ratio 40.6 (10.0-20.0); Blood Urea Nitrogen 41 mg/dL (9-23); Calcium 8.8 mg/dL (8.7-10.4); Carbon Dioxide 23 mmol/L (20-31); Chloride 99 mmol/L (98-107); Glucose 128 mg/dL (74-106); Potassium 4.2 mmol/L (3.5-5.1); Sodium 133 mmol/L (136-145); Total Protein 7.0 g/dL (5.7-8.2)
[2025-07-02 08:09] LABS: Bilirubin, Total 0.5 mg/dL (0.2-1.0)
--- NOTE | 2025-07-02 08:27 | ECG ---
[facility] Test Date: 2025-07-02 Test Time: 07:17:43 Pat Name: KEVON DONIS Department: [facility] ED Patient ID: [id number] Room: Gender: F Manager Enrollment: ROBERT : 1945 Requested By: NEHEMIAS AVALOS Order Number: [id number] Reading MD: Mariano Beal Measurements Intervals [place] Rate: 84 P: 75 [place]: 166 QRS: 7 QRSD: 76 T: 73 QT: 368 QTc: 436 Interpretive Statements Sinus rhythm Atrial premature complex Low voltage, precordial leads Electronically Signed On 07-06-2025 13:28:52 PST by Mariano Beal Please click the below link to view image of tracing.
--- NOTE | 2025-07-02 08:43 | DVH ---
INDICATION: sob TECHNIQUE: Frontal view of the chest. COMPARISON: XR CHEST 2 VIEW on DOS: 01/13/25, CHEST WITHOUT CONTRAST on DOS: 01/15/20 FINDINGS: . The heart and mediastinal contours are grossly unremarkable. There is no evidence of pleural disea se. The lungs are clear. The bony structures of the chest are intact without fracture. IMPRESSION: 1. No evidence of acute disease.
--- NOTE | 2025-07-02 08:44 | DVH ---
EXAM: CT HEAD WITHOUT CONTRAST INDICATION: dizzy TECHNIQUE: CT of the head without intravenous contrast. Radiation Dose : 1. Head: CT Dose: CTDI volume is 54.73 mGy. Dose-length product is 1065.02 mGy*cm The dose indicators for CT are the volume Computed Tomography (CT) Dose Index (CTDIvol) and the Dose Length Product (DLP), and are measured in units of mGy and mGy-cm, respectively. These indicators are not patient dose, but values generated from the CT scanner acquisition factors. The report includes radiation exposure data for exposures received during this examination. COMPARISON: CT BRAIN/HEAD WO on DOS: 02/10/24, HEAD WITHOUT CONTRAST on DOS: 01/15/20 FINDINGS: There is no evidence of acute intracranial hemorrhage, extra-axial collection, mass effect, midline s hift, herniation or hydrocephalus. The ventricles, sulci and cisterns are age appropriate. The kerns-white differentiation is intact. Patchy periventricular and subcortical white matter hypoattenuation is nonspecific but may be related to small vessel ischemic disease. The visualized paranasal sinuses and mastoid air cells are clear. The surrounding soft tissues and osseous structures are unremarkable. IMPRESSION: No acute intracranial abnormality. Radiation optimization: All CT scans at this facility use at least one of these dose optimization lori hniques: automated exposure control mA and/or kV adjustment per patient size (includes targeted exam s where dose is matched to clinical indication) or iterative reconstruction.
[2025-07-02] MEDS: ONDANSETRON HCL 4 MG/2 ML VIAL IV ONE ×2 (09:17→22:10)
--- NOTE | 2025-07-02 11:40 | ED.PDOC ---
Altered Mental Status HPI Comments 80 y.o female with PMHx of COPD, HTN and arthritis, presents to the ED via EMS for an evaluation of recurrent orthostatic syncopal episodes that started this morning. Patient reports episodes started last night around midnight and has had 3 episodes so far. EMS unable to obtain full orthostatic set due to patient becoming dizzy upon positioning. Patient denies any chest pain, SOB, fever, chills, nausea, vomiting, weakness. Vitals laying are WNL with BG of 120. Chief Complaint: Syncope Time Seen by MD: 07:19 Primary Care Provider: DANIELITO Reviewed Notes: Nurses Notes, Medications, Allergies Allergies: Coded Allergies: NO KNOWN ALLERGIES (Unverified , 03/22/16) Home Meds Active Scripts Amlodipine Besylate (Amlodipine Besylate) 10 Mg Tab, 1 TAB PO DAILY, #90 TAB 1 Refill Prov:DOTTY GRIGSBY MD 03/25/25 Reported Medications Omeprazole (PRILOSEC) 20 Mg Cap, 1 CAP PO DAILY, #90 CAP 1 Refill 03/25/16 Information Source: Patient Mode of Arrival: EMS Severity: Moderate Timing: Hours Duration: Since onset Prehospital treatment: 12 Lead EKG, Accucheck (120) Quality: Decreased Alertness Recent: None Associated Signs and Symptoms: None Past Medical History PAST MEDICAL HISTORY: Arthritis, COPD, GERD, HTN Surgical History: Appendectomy, Cholecystectomy, Hernia Repair, Hysterectomy DIGITAL FORENSICS EXAMINER History: No Pertinent DIGITAL FORENSICS EXAMINER History Family History Family History: Unobtainable Social History Smoker: Quit Greater Than 1 Year Alcohol: Occasionally Drugs: Denies Drug Use Lives In: Home Constitutional: denies: chills, diaphoresis, fatigue, fever, malaise, sweats, weakness, others EENTM: denies: blurred vision, double vision, ear bleeding, ear discharge, ear drainage, ear pain, ear ringing, eye pain, eye redness, hearing loss, mouth pain, mouth swelling, nasal discharge, nose bleeding, nose congestion, nose pain, photophobia, tearing, throat pain, throat swelling, voice changes, others Respiratory: denies: cough, hemoptysis, orthopnea, SOB at rest, shortness of breath, SOB with excertion, stridor, wheezing, others Cardiovascular: reports: lightheadedness, syncope; denies: chest pain, dizzy spells, diaphoresis, Dyspnea on exertion, edema, irregular heart beat, left arm pain, palpitations, PND, others Gastrointestinal: denies: abdomen distended, abdominal pain, blood streaked bowels, constipated, diarrhea, dysphagia, difficulty swallowing, hematemesis, melena, nausea, poor appetite, poor fluid intake, rectal bleeding, rectal pain, vomiting, others Genitourinary: denies: abnormal vagina bleeding, burning, dyspareunia, dysuria, flank pain, frequency, hematuria, incontinence, pain, , vagina discharge, urgency, others Neurological: denies: dizziness, fainting, headache, left sided numbness, left sided weakness, numbness, paresthesia, pre-existing deficit, right sided numbness, right sided weakness, seizure, speech problems, tingling, tremors, weakness, others Musculoskeletal: denies: back pain, gout, joint pain, joint swelling, muscle pain, muscle stiffness, neck pain, others Integumetry: denies: bruises, change in color, change in hair/nails, dryness, laceration, lesions, lumps, rash, wounds, others Allergic/Immunocompromised: denies: Difficulty Healing, Frequent Infections, Hives, Itching, others Hematologic/Lymphatic: denies: anemia, blood clots, easy bleeding, easy bruising, swollen glands, others Endocrine: denies: excessive hunger, excessive sweating, excessive thirst, excessive urination, flushing, intolerance to cold, intolerance to heat, unexplained weight gain, unexplained weight loss, others Psychiatric: denies: anxiety, bipolar disorder, depression, hopeless, panic disorder, schizophrenia, sleepless, suicidal, others All Other Systems: Reviewed and Negative Physical Exam General Appearance: Moderate Distress HEENT: Normal ENT Inspection, Pharynx Normal, TMs Normal Neck: Full Range of Motion, Non-Tender, Normal, Normal Inspection Respiratory: Chest Non-Tender, Lungs Clear, No Accessory Muscle Use, No Respiratory Distress, Normal Breath Sounds Cardiovascular: No Edema, No JVD, No Murmur, No Gallop, Normal Peripheral Pulses, Regular Rate/Rhythm Breast Exam: Deferred Gastrointestinal: No Organomegaly, Non Tender, No Pulsatile Mass, Normal Bowel Sounds, Soft Genitalia: Deferred Pelvic: Deferred Rectal: Deferred Extremities: No calf tenderness, No pedal edema Musculoskeletal : Apperance: Normal Neurologic: Alert, No Motor Deficits, No Sensory Deficits Cerebellar Function: NOT DONE Reflexes: NOT DONE Skin: Normal Color Peripheral Pulses: 3+ Radial (R), 3+ Radial (L) Lymphatic: No Adenopathy Was a procedure done? Was a procedure done?: No Differential Diagnosis (ALOC) Differential Diagnosis: Dehydration, Heart Failure, Renal Failure X-Ray, Labs, Meds, VS Vital Signs Date Time Temp Pulse Resp B/P (MAP) Pulse Ox O2 Delivery O2 Flow Rate FiO2 07/02/25 09:19 150/84 07/02/25 07:43 97.9 79 16 159/82 (107) 98 97.9 07/02/25 07:43 79 16 98 Room Air* 0 21 07/02/25 07:19 84 07/02/25 07:19 97.7 86 18 166/67 97 97.7 Lab Test 07/02/25 09:23 07/02/25 07:45 Range/Units Troponin I High Sensitivity 15 16 </=34 ng/L White Blood Count 12.8 H 4.4-10.8 10^3/uL Red Blood Count 3.58 L 4.0-5.20 10^6/uL Hemoglobin 11.7 L 12.2-16.2 g/dL Hematocrit 34.3 L 36.0-46.0 % Mean Corpuscular Volume 95.9 80.0-100.0 fL Mean Corpuscular Hemoglobin 32.7 H 28.0-32.0 pg Mean Corpuscular Hemoglobin Concent 34.1 32.0-36.0 g/dL Red Cell Distribution Width 14.3 11.8-14.3 % Platelet Count 433 140-450 10^3/uL Mean Platelet Volume 7.2 6.9-10.8 fL Neutrophils (%) (Auto) 91.6 H 37.0-80.0 % Lymphocytes (%) (Auto) 5.2 L 10.0-50.0 % Monocytes (%) (Auto) 2.9 0.0-12.0 % Eosinophils (%) (Auto) 0.0 0.0-7.0 % Basophils (%) (Auto) 0.3 0.0-2.0 % Neutrophils # (Auto) 11.8 H 1.6-8.6 10 ^3/uL Lymphocytes # (Auto) 0.7 0.4-5.4 10 ^3/uL Monocytes # (Auto) 0.4 0-1.3 10 ^3/uL Eosinophils # (Auto) 0 0-0.8 10 ^3/uL Basophils # (Auto) 0 0-0.2 10 ^3/uL Nucleated Red Blood Cells 0.0 % Sodium Level 133 L 136-145 mmol/L Potassium Level 4.2 3.5-5.1 mmol/L Chloride Level 99 98-107 mmol/L Carbon Dioxide Level 23 20-31 mmol/L Anion Gap 11 5-15 Blood Urea Nitrogen 41 H 9-23 mg/dL Creatinine 1.01 0.550-1.02 mg/dL Glomerular Filtration Rate Calc 56 >90 mL/min BUN/Creatinine Ratio 40.6 H 10.0-20.0 Serum Glucose 128 H 74-106 mg/dL Calcium Level 8.8 8.7-10.4 mg/dL Total Bilirubin 0.5 0.2-1.0 mg/dL Aspartate Amino Transferase (AST) 16 13-40 U/L Alanine Aminotransferase (ALT) 16 7-40 U/L Alkaline Phosphatase 92 46-116 U/L Total Protein 7.0 5.7-8.2 g/dL Albumin 4.2 3.2-4.8 g/dL Current Medications Medications (Trade) Dose Ordered Sig/Alejandra Route Start Time Stop Time Status Last Admin Sodium Chloride 1,000 ml @ 1,000 mls/hr Q1H ONCE IV 07/02/25 07:30 07/02/25 08:29 DC 07/02/25 07:47 Clonidine HCl (Catapres Tablet) 0.2 mg ONCE ONCE PO 07/02/25 08:00 07/02/25 08:01 DC 07/02/25 09:19 Ondansetron HCl (Zofran) 4 mg ONCE ONCE IV 07/02/25 08:30 07/02/25 08:37 DC 07/02/25 09:[address] [address] Ph: [phone] DIAGNOSTIC IMAGING Diagnostic Imaging Report : [id number] Signed PATIENT: KEVON DONIS ACCT: [id number] UNIT: [id number] : 1945 LOC: ER ROOM / BED: / AGE / SEX: 80 / F ADM STATUS: REG ER SERVICE 1 ORDERING PHYSICIAN: NEHEMIAS AVALOS MD PROCEDURE(s): HWOCT - HEAD WITHOUT CONTRAST REASON: dizzy ORDER NUMBER(s): [id number], ACCESSION NUMBER(s): [id number] EXAM: CT HEAD WITHOUT CONTRAST INDICATION: dizzy TECHNIQUE: CT of the head without intravenous contrast. Radiation Dose : 1. Head: CT Dose: CTDI volume is 54.73 mGy. Dose-length product is 1065.02 mGy*cm The dose indicators for CT are the volume Computed Tomography (CT) Dose Index (CTDIvol) and the Dose Length Product (DLP), and are measured in units of mGy and mGy-cm, respectively. These indicators are not patient dose, but values generated from the CT scanner acquisition factors. The report includes radiation exposure data for exposures received during this examination. COMPARISON: CT BRAIN/HEAD WO on DOS: 02/10/24, HEAD WITHOUT CONTRAST on DOS: 01/15/20 FINDINGS: There is no evidence of acute intracranial hemorrhage, extra-axial collection, mass effect, midline shift, herniation or hydrocephalus. The ventricles, sulci and cisterns are age appropriate. The kerns-white differentiation is intact. Patchy periventricular and subcortical white matter hypoattenuation is nonspecific but may be related to small vessel ischemic disease. The visualized paranasal sinuses and mastoid air cells are clear. The surrounding soft tissues and osseous structures are unremarkable. IMPRESSION: No acute intracranial abnormality. Radiation optimization: All CT scans at this facility use at least one of these dose optimization techniques: automated exposure control mA and/or kV adjustment per patient size (includes targeted exams where dose is matched to cl inical indication) or iterative reconstruction. ATED BY: JANUSZ IYER MD DICTATED DATE/TIME: 07/02/25840 SIGNED BY: JANUSZ IYER MD SIGNED DATE/TIME: 07/02/25840 CC: [place] [address] Ph: [phone] DIAGNOSTIC IMAGING Diagnostic Imaging Report : [id number] Signed PATIENT: KEVON DONIS ACCT: [id number] UNIT: [id number] : 1945 LOC: ER ROOM / BED: / AGE / SEX: 80 / F ADM STATUS: REG ER SERVICE 1 ORDERING PHYSICIAN: NEHEMIAS AVALOS MD PROCEDURE(s): CXRP - CHEST PORTABLE REASON: sob ORDER NUMBER(s): [id number], ACCESSION NUMBER(s): [id number] INDICATION: sob TECHNIQUE: Frontal view of the chest. COMPARISON: XR CHEST 2 VIEW on DOS: 01/13/25, CHEST WITHOUT CONTRAST on DOS: 01/15/20 FINDINGS: . The heart and mediastinal contours are grossly unremarkable. There is no evidence of pleural disease. The lungs are clear. The bony structures of the chest are intact without fracture. IMPRESSION: 1. No evidence of acute disease. ATED BY: ODELL GALVAN MD DICTATED DATE/TIME: 07/02/25839 SIGNED BY: ODELL GALVAN MD SIGNED DATE/TIME: 07/02/25839 CC: Patient alert. Complaining of dizziness. Unable to ambulate. Saturation pristine on room air. Blood pressure elevated. Possible TIA. Was given clonidine. Explained to the patient. Continue monitoring. Time of 1ST Reevaluation: 07:42 Reevaluation 1ST: Unchanged Patient Education/Counseling: Diagnosis, Treatment, Prognosis Family Education/Counseling: No Family Present SEPSIS Sepsis Screen Date sepsis recognized/suspect: Jul 02, 2025 Time Sepsis recognized/suspect: 723 Recent Procedure: No On Antibiotic Therapy: No Respiratory Rate >20: No Heart Rate >90: No Temp<36 C (96.8 F) or >38.3 C: No SBP <90 or MAP <65 mmHG: No New Acute Mental Status Change: No Is the patient on CPAP, BIPAP,: No Physician Orders Chest Portable (07/02/25 07:22) Urinalysis (07/02/25 07:22) Troponin-I Hs (07/02/25 10:22) Head Without Contrast (07/02/25 07:22) Vital Signs Date Time Temp Pulse Resp B/P (MAP) Pulse Ox O2 Delivery O2 Flow Rate FiO2 07/02/25 09:19 150/84 07/02/25 07:43 97.9 79 16 159/82 (107) 98 97.9 07/02/25 07:43 79 16 98 Room Air* 0 21 07/02/25 07:19 84 07/02/25 07:19 97.7 86 18 166/67 97 97.7 Laboratory Tests Test 07/02/25 07:45 White Blood Count 12.8 10^3/uL (4.4-10.8) H Medications Medications Dose Ordered Sig/Alejandra Route Start Time Stop Time Status Last Admin Dose Admin Clonidine HCl 0.2 mg ONCE ONCE PO 07/02/25 08:00 07/02/25 08:01 DC 07/02/25 09:19 Ondansetron HCl 4 mg ONCE ONCE IV 07/02/25 08:30 07/02/25 08:37 DC 07/02/25 09:17 Sodium Chloride 1,000 ml @ 1,000 mls/hr Q1H ONCE IV 07/02/25 07:30 07/02/25 08:29 DC 07/02/25 07:47 Departure 1 Departure Time of Disposition: 07:49 Impression: Primary Impression: HTN (hypertension) Qualified Codes: I10 - Essential (primary) hypertension Additional Impression: TIA (transient ischemic attack) Disposition: ADMITTED INPATIENT Admit to: Med Surg Condition: Guarded Critical Care Note Critical Care Time?: No Stability Stability form required: No Heart Score Heart Score: Heart Score Response (Comments) Value History Slightly Suspicious 0 EKG Normal 0 Age >65 2 Risk Factors >3 or Hx ASHD 2 Troponin Normal limit 0 Total 4 I personally scribed for NEHEMIAS AVALOS MD ([email or web address]) on 07/02/25 at 07:41. Electronically submitted by Conchis Jordan ([email or web address]). I personally scribed for NEHEMIAS AVALOS MD ([email or web address]) on 07/02/25 at 07:42. Electronically submitted by Conchis Jordan ([email or web address]). I personally scribed for NEHEMIAS AVALOS MD ([email or web address]) on 07/02/25 at 11:10. Electronically submitted by Brayden Cobos ([email or web address]). NEHEMIAS AVALOS MD Jul 02, 2025 07:41
[2025-07-02 14:14] LABS: Urine Budding Yeast OCCASIONAL /hpf (None Seen); Urine Protein, UAD Negative (Negative)
[2025-07-02 19:30] VITALS: RESP 16; O2SAT 97
[2025-07-02 20:00] VITALS: TEMP 98.3
[2025-07-02] MEDS: ONDANSETRON HCL 4 MG/2 ML VIAL ONE (22:10)
--- NOTE | 2025-07-02 22:14 | DVHINCON2 ---
ALFONZO PELLETIER ORDER CHECKER PACKER PROCESSER 07/02/25 2214: Date of service: Jul 02, [address] Greco Reason for Consultation Medical Management History of Present Illness 80-year-old female brought into the emergency department with complaints of generalized weakness over the previous day. Reported multiple episodes of dizziness. No falls or injury reported. During the emergency department evaluation W12.8, H&H 11.7/34.3, PLT 433, Na 133, K4.2, BUN 41, creatinine 1.01, GFR 56. Troponins have been found to be negative x3. UA is positive for leukocyte esterase +1 With WBC. CXR is unremarkable. At this time the patient is alert and oriented x3. Denies fevers, chills, abdominal pain, shortness of breath, chest pain palpitations. Family History: FH: breast cancer G8 MOTHER FH: colon cancer G8 FATHER Family history: Diabetes mellitus G8 BROTHER Allergies: Coded Allergies: NO KNOWN ALLERGIES (Unverified , 03/22/16) Home Meds Active Scripts Cephalexin Monohydrate (Cephalexin) 500 Mg Tab, 500 MG PO Q6HR for 7 Days, #28 TAB Prov:ALFONZO PELLETIER NP 07/02/25 Amlodipine Besylate (Amlodipine Besylate) 10 Mg Tab, 1 TAB PO DAILY, #90 TAB 1 Refill Prov:DOTTY GRIGSBY MD 03/25/25 Reported Medications Omeprazole (PRILOSEC) 20 Mg Cap, 1 CAP PO DAILY, #90 CAP 1 Refill 03/25/16 Review of Systems Ten systems reviewed and negative except as per HPI Vital Signs Vital Signs Date Time Temp Pulse Resp B/P (MAP) Pulse Ox O2 Delivery O2 Flow Rate FiO2 07/02/25 18:00 67 24 122/63 (82) 97 07/02/25 07:43 97.9 97.9 07/02/25 07:43 Room Air* 0 21 Physical Exam GENERAL: Patient appearing stated age, in no acute distress. HEENT: Pupils equal and reactive to light and accommodation. Extraocular muscles intact. Mucous membranes moist. Conjunctivae pink. Anicteric sclerae. LUNGS: Bilateral air entry. No wheezes, rhonchi or rales. HEART: Regular rate and rhythm. Normal S1 and S2. ABDOMEN: BS normoactive, soft, nontender, and nondistended. No CVA tenderness. EXTREMITIES: No clubbing, cyanosis, edema. No calf tenderness. Pedal pulses 2+. NEUROLOGICAL: The patient is alert and oriented times 3. CN II-XII intact. No focal deficits on gross sensory or motor examination. Labs/Diagnostic Data Labs Test 07/02/25 14:33 07/02/25 14:03 07/02/25 11:10 07/02/25 07:45 Range/Units POC Glucose 87 70-106 mg/dl Urine Color Light-yellow Yellow Urine Clarity Clear Clear Urine pH 5.5 5.0-9.0 Urine Specific [place] 1.022 1.001-1.035 Urine Protein Negative Negative Urine Ketones Negative Negative Urine Blood Negative Negative /uL Urine Nitrite Negative Negative Urine Bilirubin Negative Negative Urine Urobilinogen Normal Negative mg/dL Urine Leukocyte Esterase 1+ Negative /uL Urine RBC None seen 0 - 4 /hpf Urine Microscopic WBC 7 H 0-5 /HPF Urine Squamous Epithelial Cells Few <5 /hpf Urine Bacteria Few H None Seen /hpf Urine Yeast (Budding) Occasional None Seen /hpf Urine Glucose Normal Normal mg/dL Troponin I High Sensitivity 16 </=34 ng/L White Blood Count 12.8 H 4.4-10.8 10^3/uL Red Blood Count 3.58 L 4.0-5.20 10^6/uL Hemoglobin 11.7 L 12.2-16.2 g/dL Hematocrit 34.3 L 36.0-46.0 % Mean Corpuscular Volume 95.9 80.0-100.0 fL Mean Corpuscular Hemoglobin 32.7 H 28.0-32.0 pg Mean Corpuscular Hemoglobin Concent 34.1 32.0-36.0 g/dL Red Cell Distribution Width 14.3 11.8-14.3 % Platelet Count 433 140-450 10^3/uL Mean Platelet Volume 7.2 6.9-10.8 fL Neutrophils (%) (Auto) 91.6 H 37.0-80.0 % Lymphocytes (%) (Auto) 5.2 L 10.0-50.0 % Monocytes (%) (Auto) 2.9 0.0-12.0 % Eosinophils (%) (Auto) 0.0 0.0-7.0 % Basophils (%) (Auto) 0.3 0.0-2.0 % Neutrophils # (Auto) 11.8 H 1.6-8.6 10 ^3/uL Lymphocytes # (Auto) 0.7 0.4-5.4 10 ^3/uL Monocytes # (Auto) 0.4 0-1.3 10 ^3/uL Eosinophils # (Auto) 0 0-0.8 10 ^3/uL Basophils # (Auto) 0 0-0.2 10 ^3/uL Nucleated Red Blood Cells 0.0 % Sodium Level 133 L 136-145 mmol/L Potassium Level 4.2 3.5-5.1 mmol/L Chloride Level 99 98-107 mmol/L Carbon Dioxide Level 23 20-31 mmol/L Anion Gap 11 5-15 Blood Urea Nitrogen 41 H 9-23 mg/dL Creatinine 1.01 0.550-1.02 mg/dL Glomerular Filtration Rate Calc 56 >90 mL/min BUN/Creatinine Ratio 40.6 H 10.0-20.0 Serum Glucose 128 H 74-106 mg/dL Calcium Level 8.8 8.7-10.4 mg/dL Total Bilirubin 0.5 0.2-1.0 mg/dL Aspartate Amino Transferase (AST) 16 13-40 U/L Alanine Aminotransferase (ALT) 16 7-40 U/L Alkaline Phosphatase 92 46-116 U/L Total Protein 7.0 5.7-8.2 g/dL Albumin 4.2 3.2-4.8 g/dL Assessment UTI Generalized weakness Patient's chart will be reviewed in entirely including lab work, imaging, physical assessment. Patient was seen ER bed 8. Patient daughter is at the bedside. During the emergency department evaluation W-2 .8, H&H 11.7/34.3, PLT 433. Na 133, K4.2, BUN 41, creatinine 1.01, GFR 56. Proponent -. UA is p ositive for Leukocyte esterase+1 with wbc. ECG in art. Chest x-ray with no acute cardio, pulmonary disease. While the patient was in the emergency department, she was treated with 1LNS bolus. Also provided her with a loading dose of Ceftriaxone IV. Upon evaluation, the patient is hemodynamic stable with a blood pressure 131/73, heart rate 75, RR 12 BPM, oxygen saturation 97% on room air. Patient is alert and oriented x3 at her baseline. Plan/Recommendation This case was previously discussed between the ER physician and supervising physician Dr. Mera, where discharge planning had already been discussed. Patient was to be discharged from the emergency department earlier in the day, however had failed to follow through. Social service consult had been placed for DME and home physical therapy. At this time, the patient is to be discharged home. [facility] [place] housing case manager, Hamida has been consulted to continue home health, home safety evaluation for tomorrow morning, and outpatient physical therapy. I have also sent a prescription for oral ABX Keflex. Patient can also follow up at [facility] urgent [facility] for continued care of UTI if needed. This plan was discussed with both the patient and the daughter at the bedside. We both agreed. They were provided with our precaution, including, but not limited to fevers, chills, syncope, confusion, dizziness, shortness of breath, chest pain, palpitations, abdominal pain, nausea, vomiting. If any of these occur, please return to the nearest emergency department for further evaluation or treatment Plan discussed with: Patient, Daughter DOTTY GRIGSBY MD 07/03/25 1157: Family History: FH: breast cancer G8 MOTHER FH: colon cancer G8 FATHER Family history: Diabetes mellitus G8 BROTHER Allergies: Coded Allergies: NO KNOWN ALLERGIES (Unverified , 03/22/16) Home Meds Active Scripts Cephalexin Monohydrate (Cephalexin) 500 Mg Tab, 500 MG PO Q6HR for 7 Days, #28 TAB Prov:ALFONZO PELLETIER NP 07/02/25 Amlodipine Besylate (Amlodipine Besylate) 10 Mg Tab, 1 TAB PO DAILY, #90 TAB 1 Refill Prov:DOTTY GRIGSBY MD 03/25/25 Reported Medications Omeprazole (PRILOSEC) 20 Mg Cap, 1 CAP PO DAILY, #90 CAP 1 Refill 03/25/16 Additional Comments Additional Comments Additional Comments Patient's chart is reviewed and discussed with the nurse practitioner. Patient is seen evaluated and discharged by ORDER CHECKER PACKER PROCESSER from the ER last night. I agree with his documentation, evaluation, assessment and care plan as outlined. ALFONZO PELLETIER NP Jul 02, 2025 22:14 DOTTY GRIGSBY MD Jul 03, 2025 11:57
[2025-07-02] MEDS ORDERED: CEPH500T PO (22:16)
[2025-07-02 23:00] VITALS: BP 131/73; PULSE 75; RESP 12; O2SAT 97
== END 2025-07-02 23:00 | disposition home or self-care (01) ==
LOC: EDBD 07:12 → ER 07:15
DX: I10 Essential (primary) hypertension (principal); G45.9 Transient cerebral ischemic attack, unspecified; F10.90 Alcohol use, unspecified, uncomplicated; J44.9 Chronic obstructive pulmonary disease, unspecified; M19.90 Unspecified osteoarthritis, unspecified site; K21.9 Gastro-esophageal reflux disease without esophagitis; Z79.899 Other long term (current) drug therapy; Z87.891 Personal history of nicotine dependence; Z90.710 Acquired absence of both cervix and uterus; Z90.49 Acquired absence of other specified parts of digestive tract; Z98.890 Other specified postprocedural states
CPT/HCPCS: 36415; 70450; 71045; 80053; 81001; 82947; 84484; 85025; 93005; 96361; 96365; 96375; 96376; 99285; J0696; J2405; J7030; 82962